=== PATIENT | male | born 1950 | race Caucasian/White ===

== ENCOUNTER 2017-08-13 10:55 | Outpatient (CLI) | payer MEDICARE, SELFPAY | END 2017-08-13 15:51 | PROVIDERS: Family Provider Emergency Medicine; Visit Provider Emergency Medicine | DX: Z79.01 Long term (current) use of anticoagulants (principal); I51.7 Cardiomegaly; Z51.81 Encounter for therapeutic drug level monitoring | CPT/HCPCS: 85610; 99211; G0463 ==

== ENCOUNTER 2017-08-14 12:07 | Inpatient (IN) | payer MEDICARE, SELFPAY | END 2017-08-22 15:30 | disposition home or self-care (01) | DRG 190 | PROVIDERS: Admitting Provider Emergency Medicine; Emergency Provider Emergency Medicine; Visit Provider Internal Medicine Adolescent Medicine | DX: J44.1 Chronic obstructive pulmonary disease with (acute) exacerbation (principal); I26.99 Other pulmonary embolism without acute cor pulmonale; E87.6 Hypokalemia; I10 Essential (primary) hypertension; Z72.0 Tobacco use; I50.9 Heart failure, unspecified; Z79.01 Long term (current) use of anticoagulants | CPT/HCPCS: 36415; 70450; 71010; 71020; 72125; 73562; 78582; 80048; 80053; 82550; 82553; 82803; 83605; 83880; 84484; 85025; 85378; 85610; 87040; 87070; 87077; 87186; 87205; 93005; 93041; 93970; 94640; 94660; 94760; 96365; 96375; 97163; 97530; 99211; 99285; A9540; A9567; G0378; G0463; J0456; J1956; J2270 ==

== ENCOUNTER 2017-08-26 14:38 | Outpatient (CLI) | payer MEDICARE, BC, SELFPAY ==
[2017-08-26 15:35] LABS: PHA INR Fingerstick 3.8 (0.9-1.1)
== END 2017-08-26 15:38 | disposition home or self-care (01) ==
LOC: ACC 14:43
PROVIDERS: PCP Emergency Medicine; Visit Provider Emergency Medicine
DX: Z51.81 Encounter for therapeutic drug level monitoring (principal); I51.7 Cardiomegaly; Z79.01 Long term (current) use of anticoagulants
CPT/HCPCS: 85610

== ENCOUNTER 2017-09-11 13:33 | Outpatient (CLI) | payer MEDICARE, SELFPAY ==
[2017-09-11 16:52] LABS: PHA INR Fingerstick 3.9 (0.9-1.1)
== END 2017-09-11 16:55 | disposition home or self-care (01) ==
PROVIDERS: Family Provider Emergency Medicine; PCP Emergency Medicine; Visit Provider Emergency Medicine
DX: Z79.01 Long term (current) use of anticoagulants (principal)
CPT/HCPCS: 85610; 99211; G0463

== ENCOUNTER 2017-09-25 12:35 | Outpatient (CLI) | payer MEDICARE, SELFPAY | END 2017-09-25 15:07 | disposition home or self-care (01) | LOC: ACC 12:36 | PROVIDERS: Family Provider Emergency Medicine; PCP Emergency Medicine; Visit Provider Emergency Medicine | DX: Z79.01 Long term (current) use of anticoagulants (principal); I51.7 Cardiomegaly; Z51.81 Encounter for therapeutic drug level monitoring | CPT/HCPCS: 85610; 99211; G0463 ==

== ENCOUNTER 2017-10-08 12:58 | Outpatient (CLI) | payer MEDICARE, SELFPAY | END 2017-10-08 15:26 | disposition home or self-care (01) | LOC: ACC 12:59 | PROVIDERS: PCP Emergency Medicine; Visit Provider Emergency Medicine | DX: Z79.01 Long term (current) use of anticoagulants (principal); Z51.81 Encounter for therapeutic drug level monitoring; I51.7 Cardiomegaly | CPT/HCPCS: 85610; 99211; G0463 ==

== ENCOUNTER → 2017-10-20 12:31 | Outpatient (CLI) | payer MEDICARE, SELFPAY ==
[2017-10-20 12:38] LABS: Microscopic, Urine URINE MICROSCOPIC (MICROSCOPIC)
[2017-10-20 13:07] LABS: Basophils % 0.4 % (0.1-2.0); Eosinophils # 0.3 K/mm3 (0.0-0.4); Eosinophils % 4.9 % (0.1-12.0); Hematocrit 30.3 % (42.0-52.0); Hemoglobin 8.8 g/dL (14.1-18.0); Lymphocytes # 1.5 K/mm3 (0.7-4.5); Lymphocytes % 22.9 K/mm3 (10-50); Mean Corpuscular HGB Conc 28.9 g/dL (31.8-35.4); Mean Corpuscular Hemoglobin 29.2 pg (27.0-31.2); Mean Corpuscular Volume 101.3 fl (80-94); Mean Platelet Volume 7.8 fl (7.4-10.4); Monocytes # 0.4 K/mm3 (0.1-1.0); Monocytes % 6.8 % (1.7-9.3); Neutrophils # 4.2 K/mm3 (1.8-7.8); Platelet Count 382 K/mm3 (142-424); Red Cell Distribution Width 15.8 % (11.5-17.5); White Blood Count 6.4 K/mm3 (4.8-10.8)
[2017-10-20 14:59] LABS: Appearance,Urine CLEAR (Clear); Bilirubin,Urine Negative (Negative); Blood, Urine Negative (Negative); Color,Urine YELLOW (Yellow); Glucose,Urine (UA) Negative (Negative); Ketones,Urine Negative (Negative); Leukocyte Esterase,Urine Negative (Negative); Nitrate,Urine Negative (Negative); Protein,Urine Negative (Negative); Urobilinogen,Urine 0.2 EU/dl (0.2)
[2017-10-20 15:24] LABS: Bacteria,Urine Trace /lpf; Squamous Epithelial Cell,Urine Occasional #/hpf (0-5)
[2017-10-20 15:37] LABS: Albumin Level 2.7 gm/dL (3.4-5.0); Blood Urea Nitrogen 61 mg/dL (7-18); Calcium 8.3 mg/dL (8.5-10.1); Carbon Dioxide 28 mmol/L (21.0-32.0); Creatinine,Serum 2.14 mg/dL (0.70-1.30); Estimated Glomerular Filt Rate 31 ml/min (>60); GFR (African American) 38 ML/MIN (>60); Glucose 100 mg/dL (74-106); Phosphorous 4.2 mg/dL (2.4-4.9)
[2017-10-20 16:31] LABS: INR 2.02 (0.9-1.1)
[2017-10-20 18:09] LABS: Anion Gap 13.1 mEq/L (5-15); Chloride 103 mmol/L (98-107); Potassium 5.1 mmoL/L (3.5-5.1); Sodium 139 mmol/L (136-145)
== END ==
PROVIDERS: Internal Medicine Nephrology; Family Provider Emergency Medicine; PCP Emergency Medicine; Visit Provider Emergency Medicine
DX: N18.3 Chronic kidney disease, stage 3 (moderate) (principal); Z79.01 Long term (current) use of anticoagulants
CPT/HCPCS: 80069; 81001; 85025; 85610

== ENCOUNTER → 2017-10-23 12:50 | Outpatient (POV) | payer MEDICARE, SELFPAY | PROVIDERS: Family Provider Emergency Medicine; PCP Emergency Medicine; Visit Provider Internal Medicine Nephrology | DX: Z00.00 Encounter for general adult medical examination without abnormal findings (principal) ==

== ENCOUNTER 2017-11-26 13:04 | Outpatient (CLI) | payer MEDICARE, SELFPAY ==
[2017-11-26 15:48] LABS: PHA INR Fingerstick 2.7 (0.9-1.1)
== END 2017-11-27 14:59 | disposition home or self-care (01) ==
PROVIDERS: PCP Emergency Medicine; Visit Provider Emergency Medicine
DX: Z79.01 Long term (current) use of anticoagulants (principal); Z51.81 Encounter for therapeutic drug level monitoring; I51.7 Cardiomegaly
CPT/HCPCS: 85610; 99211; G0463

== ENCOUNTER → 2018-02-23 10:44 | Outpatient (CLI) | payer MEDICARE, SELFPAY ==
[2018-02-23 10:54] LABS: Microscopic, Urine URINE MICROSCOPIC (MICROSCOPIC)
[2018-02-23 12:00] LABS: Basophils % 0.6 % (0.1-2.0); Eosinophils # 0.2 K/mm3 (0.0-0.4); Eosinophils % 3.5 % (0.1-12.0); Hematocrit 34.7 % (42.0-52.0); Hemoglobin 10.5 g/dL (14.1-18.0); Lymphocytes # 2.4 K/mm3 (0.7-4.5); Lymphocytes % 43.7 K/mm3 (10-50); Mean Corpuscular HGB Conc 30.2 g/dL (31.8-35.4); Mean Corpuscular Hemoglobin 27.6 pg (27.0-31.2); Mean Corpuscular Volume 91.5 fl (80-94); Mean Platelet Volume 7.9 fl (7.4-10.4); Monocytes # 0.4 K/mm3 (0.1-1.0); Monocytes % 7.9 % (1.7-9.3); Neutrophils # 2.5 K/mm3 (1.8-7.8); Neutrophils % 44.3 % (37.0-80.0); Platelet Count 299 K/mm3 (142-424); Red Blood Count 3.79 M/mm3 (4.60-6.20); Red Cell Distribution Width 17.4 % (11.5-17.5); White Blood Count 5.5 K/mm3 (4.8-10.8)
[2018-02-23 12:28] LABS: Albumin Level 3.6 gm/dL (3.4-5.0); Anion Gap 12.3 mEq/L (5-15); Blood Urea Nitrogen 48 mg/dL (7-18); Calcium 8.9 mg/dL (8.5-10.1); Carbon Dioxide 25 mmol/L (21.0-32.0); Chloride 103 mmol/L (98-107); Creatinine,Serum 1.24 mg/dL (0.70-1.30); Estimated Glomerular Filt Rate 58 ml/min (>60); Ferritin 18 ng/mL (8-388); GFR (African American) 71 ML/MIN (>60); Glucose 94 mg/dL (74-106); Phosphorous 3.6 mg/dL (2.4-4.9); Potassium 4.3 mmoL/L (3.5-5.1); Sodium 136 mmol/L (136-145); Uric Acid 6.3 mg/dL (2.6-7.2)
[2018-02-23 14:05] LABS: Appearance,Urine CLEAR (Clear); Bilirubin,Urine Negative (Negative); Blood, Urine Negative (Negative); Color,Urine YELLOW (Yellow); Glucose,Urine (UA) Negative (Negative); Ketones,Urine Negative (Negative); Leukocyte Esterase,Urine Negative (Negative); Nitrate,Urine Negative (Negative); Protein,Urine Negative (Negative); Specific Gravity, Urine <= 1.005 (1.005-1.030); Urobilinogen,Urine 0.2 EU/dl (0.2)
[2018-02-23 14:12] LABS: Creatinine,Urine Random 33 mg/dL (20-320)
[2018-02-23 14:27] LABS: Total Protein,Urine Random < 6.0 mg/dL (0.0-11.9)
[2018-02-23 14:50] LABS: Bacteria,Urine Trace /lpf; Squamous Epithelial Cell,Urine Occasional #/hpf (0-5)
[2018-02-24 08:38] LABS: Iron 24 ug/dL (38-169); Iron Saturation 6 % (15-55); UIBC 392 ug/dL (111-343)
[2018-02-24 09:02] LABS: Vitamin D 25 Hydroxy 35.2 ng/mL (30.0-100.0)
[2018-02-25 12:24] LABS: Calcium, Ionized 5.4 mg/dL (4.5-5.6); Parathyroid Hormone Intact 95 pg/mL (15-65)
[2018-02-25 12:26] LABS: Microalbumin, Urine 17.4 ug/mL (Not Estab.)
== END ==
PROVIDERS: Visit Provider Internal Medicine Nephrology
DX: N18.3 Chronic kidney disease, stage 3 (moderate) (principal); D64.9 Anemia, unspecified; Z79.899 Other long term (current) drug therapy
CPT/HCPCS: 36415; 80069; 81001; 82043; 82330; 82570; 82652; 82728; 83540; 83550; 83970; 84155; 84550; 85025

== ENCOUNTER → 2018-02-26 14:36 | Outpatient (POV) | payer MEDICARE, SELFPAY | PROVIDERS: Family Provider Emergency Medicine; PCP Emergency Medicine; Visit Provider Internal Medicine Nephrology | DX: Z00.00 Encounter for general adult medical examination without abnormal findings (principal) ==

== ENCOUNTER → 2018-11-23 11:16 | Outpatient (CLI) | payer MEDICARE, SELFPAY ==
[2018-11-23 11:22] LABS: Microscopic, Urine URINE MICROSCOPIC (MICROSCOPIC)
[2018-11-23 12:18] LABS: Basophils % 0.4 % (0.1-2.0); Eosinophils # 0.1 K/mm3 (0.0-0.4); Eosinophils % 1.5 % (0.1-12.0); Hemoglobin 9.9 g/dL (14.1-18.0); Lymphocytes # 1.7 K/mm3 (0.7-4.5); Mean Corpuscular Hemoglobin 26.9 pg (27.0-31.2); Mean Corpuscular Volume 92.8 fl (80-94); Mean Platelet Volume 6.9 fl (7.4-10.4); Monocytes # 0.2 K/mm3 (0.1-1.0); Monocytes % 5.9 % (1.7-9.3); Neutrophils % 49.2 % (37.0-80.0); Platelet Count 399 K/mm3 (142-424); Red Blood Count 3.67 M/mm3 (4.60-6.20); Red Cell Distribution Width 17.1 % (11.5-17.5)
[2018-11-23 12:24] LABS: Anion Gap 13.3 mEq/L (5-15); Blood Urea Nitrogen 27 mg/dL (7-18); Calcium 9.3 mg/dL (8.5-10.1); Carbon Dioxide 29 mmol/L (21.0-32.0); Chloride 103 mmol/L (98-107); Creatinine,Serum 1.41 mg/dL (0.70-1.30); Estimated Glomerular Filt Rate 50 ml/min (>60); GFR (African American) 61 ML/MIN (>60); Glucose 102 mg/dL (74-106); Potassium 4.3 mmoL/L (3.5-5.1); Sodium 141 mmol/L (136-145)
[2018-11-23 12:26] LABS: Appearance,Urine CLEAR (Clear); Bilirubin,Urine Negative (Negative); Blood, Urine Negative (Negative); Color,Urine YELLOW (Yellow); Glucose,Urine (UA) Negative (Negative); Ketones,Urine Negative (Negative); Leukocyte Esterase,Urine Negative (Negative); Nitrate,Urine Negative (Negative); Protein,Urine Negative (Negative); Specific Gravity, Urine <= 1.005 (1.005-1.030); Urobilinogen,Urine 0.2 EU/dl (0.2)
[2018-11-23 12:35] LABS: Bacteria,Urine Trace /lpf; Squamous Epithelial Cell,Urine Occasional #/hpf (0-5)
[2018-11-23 12:46] LABS: Creatinine,Urine Random 22 mg/dL (20-320); Total Protein,Urine Random 8.9 mg/dL (0.0-11.9)
[2018-11-24 07:02] LABS: Vitamin D 25 Hydroxy 35.6 ng/mL (30.0-100.0)
[2018-11-24 16:29] LABS: Calcium, Ionized 5.6 mg/dL (4.5-5.6); Parathyroid Hormone Intact 78 pg/mL (15-65)
== END ==
PROVIDERS: Visit Provider Internal Medicine Nephrology
DX: N18.3 Chronic kidney disease, stage 3 (moderate) (principal)
CPT/HCPCS: 36415; 80069; 81001; 82330; 82570; 82652; 83970; 84155; 85025

== ENCOUNTER → 2018-11-26 12:29 | Outpatient (POV) | payer MEDICARE, SELFPAY | PROVIDERS: Visit Provider Internal Medicine Nephrology | DX: Z00.00 Encounter for general adult medical examination without abnormal findings (principal) ==

== ENCOUNTER → 2019-08-23 12:35 | Outpatient (CLI) | payer MEDICARE, SELFPAY ==
[2019-08-23 12:40] LABS: Microscopic, Urine URINE MICROSCOPIC (MICROSCOPIC)
[2019-08-23 13:09] LABS: Basophils % 0.5 % (0.1-2.0); Eosinophils # 0.2 K/mm3 (0.0-0.4); Eosinophils % 3.3 % (0.1-12.0); Hematocrit 33.2 % (42.0-52.0); Hemoglobin 9.5 g/dL (14.1-18.0); Lymphocytes # 1.8 K/mm3 (0.7-4.5); Lymphocytes % 32.8 % (10-50); Mean Corpuscular HGB Conc 28.6 g/dL (31.8-35.4); Mean Corpuscular Hemoglobin 27.3 pg (27.0-31.2); Mean Corpuscular Volume 95.4 fl (80-94); Mean Platelet Volume 7.6 fl (7.4-10.4); Monocytes # 0.3 K/mm3 (0.1-1.0); Neutrophils # 3.2 K/mm3 (1.8-7.8); Neutrophils % 58.3 % (37.0-80.0); Platelet Count 362 K/mm3 (142-424); Red Blood Count 3.48 M/mm3 (4.60-6.20); Red Cell Distribution Width 18.3 % (11.5-17.5); White Blood Count 5.5 K/mm3 (4.8-10.8)
[2019-08-23 13:20] LABS: Appearance,Urine CLEAR (Clear); Bilirubin,Urine Negative (Negative); Blood, Urine Negative (Negative); Color,Urine YELLOW (Yellow); Glucose,Urine (UA) Negative (Negative); Ketones,Urine Negative (Negative); Leukocyte Esterase,Urine Negative (Negative); Nitrate,Urine Negative (Negative); PH,Urine 5.5 (5.0-8.5); Protein,Urine Negative (Negative); Urobilinogen,Urine 0.2 EU/dl (0.2)
[2019-08-23 13:22] LABS: Creatinine,Urine Random 14 mg/dL (20-320); Total Protein,Urine Random 6.7 mg/dL (0.0-11.9)
[2019-08-23 14:14] LABS: Squamous Epithelial Cell,Urine Occasional #/hpf (0-5)
[2019-08-23 14:31] LABS: Albumin Level 3.1 gm/dL (3.4-5.0); Anion Gap 12.8 mEq/L (5-15); Blood Urea Nitrogen 49 mg/dL (7-18); Calcium 8.8 mg/dL (8.5-10.1); Carbon Dioxide 27 mmol/L (21.0-32.0); Chloride 106 mmol/L (98-107); Creatinine,Serum 1.67 mg/dL (0.70-1.30); Estimated Glomerular Filt Rate 41 ml/min (>60); GFR (African American) 50 ML/MIN (>60); Glucose 87 mg/dL (74-106); Phosphorous 3.8 mg/dL (2.4-4.9); Potassium 5.8 mmoL/L (3.5-5.1); Sodium 140 mmol/L (136-145)
== END ==
PROVIDERS: Visit Provider Internal Medicine Nephrology
DX: N18.3 Chronic kidney disease, stage 3 (moderate) (principal)
CPT/HCPCS: 36415; 80069; 81001; 82570; 84155; 85025

== ENCOUNTER → 2019-08-26 13:05 | Outpatient (POV) | payer MEDICARE, SELFPAY | PROVIDERS: Visit Provider Internal Medicine Nephrology | DX: Z00.00 Encounter for general adult medical examination without abnormal findings (principal) ==

== ENCOUNTER → 2019-09-03 12:01 | Outpatient (CLI) | payer MEDICARE, SELFPAY ==
[2019-09-03 14:21] LABS: Anion Gap 13.9 mEq/L (5-15); Blood Urea Nitrogen 40 mg/dL (7-18); Calcium 8.6 mg/dL (8.5-10.1); Carbon Dioxide 28 mmol/L (21.0-32.0); Chloride 104 mmol/L (98-107); Creatinine,Serum 1.28 mg/dL (0.70-1.30); Estimated Glomerular Filt Rate 56 ml/min (>60); GFR (African American) 68 ML/MIN (>60); Glucose 84 mg/dL (74-106); Potassium 4.9 mmoL/L (3.5-5.1); Sodium 141 mmol/L (136-145)
== END ==
PROVIDERS: Visit Provider Internal Medicine Nephrology
DX: E87.5 Hyperkalemia (principal)
CPT/HCPCS: 36415; 80048

== ENCOUNTER → 2020-02-28 12:56 | Outpatient (CLI) | payer MEDICARE, SELFPAY ==
[2020-02-28 13:02] LABS: Microscopic, Urine URINE MICROSCOPIC (MICROSCOPIC)
[2020-02-28 14:09] LABS: Appearance,Urine CLEAR (Clear); Bilirubin,Urine Negative (Negative); Blood, Urine Negative (Negative); Color,Urine YELLOW (Yellow); Glucose,Urine (UA) Negative (Negative); Ketones,Urine Negative (Negative); Leukocyte Esterase,Urine Negative (Negative); Nitrate,Urine Negative (Negative); Protein,Urine Negative (Negative); Urobilinogen,Urine 0.2 EU/dl (0.2)
[2020-02-28 14:29] LABS: Creatinine,Urine Random 21 mg/dL (Not Estab.)
[2020-02-28 14:31] LABS: Chloride 105 mmol/L (98-107); Sodium 140 mmol/L (136-145)
[2020-02-28 14:32] LABS: Albumin Level 3.7 g/dl (3.5-5.0)
[2020-02-28 14:34] LABS: Blood Urea Nitrogen 37 mg/dl (9-20); Estimated Glomerular Filt Rate 55 ml/min (>60); GFR (African American) 66 ML/MIN (>60)
[2020-02-28 14:35] LABS: Calcium 9.2 mg/dl (8.4-10.2); Carbon Dioxide 27 mmol/L (22.0-30.0); Glucose 89 mg/dl (74-100); Phosphorous 4.2 mg/dl (2.5-4.5)
[2020-02-28 14:48] LABS: Intact Parathyroid Hormone 159.4 pg/mL (7.5-53.5)
[2020-02-28 14:50] LABS: 25-OH Vitamin D, Total 57.2 ng/mL (30-100)
[2020-02-28 14:54] LABS: Total Iron Binding Capacity 384 ug/dL (261-462)
[2020-02-28 14:58] LABS: Basophils % 0.7 % (0.1-2.0); Eosinophils # 0.2 K/mm3 (0.0-0.4); Eosinophils % 5.4 % (0.1-12.0); Hematocrit 31.5 % (42.0-52.0); Hemoglobin 9.6 g/dL (14.1-18.0); Lymphocytes # 1.8 K/mm3 (0.7-4.5); Lymphocytes % 42.3 % (10-50); Mean Corpuscular HGB Conc 30.5 g/dL (31.8-35.4); Mean Corpuscular Hemoglobin 30.4 pg (27.0-31.2); Mean Corpuscular Volume 99.7 fl (80-94); Mean Platelet Volume 7.5 fl (7.4-10.4); Monocytes # 0.3 K/mm3 (0.1-1.0); Neutrophils # 1.9 K/mm3 (1.8-7.8); Neutrophils % 43.7 % (37.0-80.0); Platelet Count 307 K/mm3 (142-424); Red Blood Count 3.16 M/mm3 (4.60-6.20); Red Cell Distribution Width 14.6 % (11.5-17.5); White Blood Count 4.3 K/mm3 (4.8-10.8)
[2020-02-28 15:21] LABS: Mucus,Urine Trace /lpf; Squamous Epithelial Cell,Urine Occasional #/hpf (0-5); WBC,Urine Occasional #/hpf (0-3)
[2020-02-28 15:27] LABS: Ferritin 8.33 ng/ml (17.9-464)
[2020-03-01 10:16] LABS: Calcium, Ionized 5.4 mg/dL (4.5-5.6)
== END ==
PROVIDERS: Visit Provider Internal Medicine Nephrology
DX: N18.3 Chronic kidney disease, stage 3 (moderate) (principal); D50.9 Iron deficiency anemia, unspecified
CPT/HCPCS: 36415; 80069; 81001; 82306; 82330; 82570; 82728; 83550; 83970; 84155; 85025

== ENCOUNTER → 2020-03-06 12:36 | Outpatient (POV) | payer MEDICARE, SELFPAY | PROVIDERS: Visit Provider Internal Medicine Nephrology | DX: Z00.00 Encounter for general adult medical examination without abnormal findings (principal) ==

== ENCOUNTER → 2021-10-04 11:34 | Outpatient (CLI) | payer MEDICARE, SELFPAY ==
[2021-10-04 12:00] LABS: Microscopic, Urine URINE MICROSCOPIC (MICROSCOPIC)
[2021-10-04 13:27] LABS: Basophils % 0.5 % (0.1-2.0); Eosinophils # 0.1 K/mm3 (0.0-0.4); Eosinophils % 1.4 % (0.1-12.0); Hematocrit 30.4 % (42.0-52.0); Hemoglobin 9.4 g/dL (14.1-18.0); Lymphocytes # 1.7 K/mm3 (0.7-4.5); Lymphocytes % 30.3 % (10-50); Mean Corpuscular HGB Conc 30.9 g/dL (31.8-35.4); Mean Corpuscular Hemoglobin 31.6 pg (27.0-31.2); Mean Corpuscular Volume 102.4 fl (80-94); Mean Platelet Volume 8.1 fl (7.4-10.4); Monocytes # 0.5 K/mm3 (0.1-1.0); Monocytes % 8.1 % (1.7-9.3); Neutrophils # 3.4 K/mm3 (1.8-7.8); Neutrophils % 59.7 % (37.0-80.0); Platelet Count 502 K/mm3 (142-424); Red Blood Count 2.97 M/mm3 (4.60-6.20); Red Cell Distribution Width 15.3 % (11.5-17.5); White Blood Count 5.6 K/mm3 (4.8-10.8)
[2021-10-04 14:19] LABS: Appearance,Urine CLEAR (Clear); Bilirubin,Urine Negative (Negative); Blood, Urine Negative (Negative); Color,Urine YELLOW (Yellow); Glucose,Urine (UA) Negative (Negative); Ketones,Urine Negative (Negative); Leukocyte Esterase,Urine Negative (Negative); Nitrate,Urine Negative (Negative); PH,Urine 5.5 (5.0-8.5); Protein,Urine Negative (Negative); Urobilinogen,Urine 0.2 EU/dl (0.2)
[2021-10-04 14:50] LABS: Albumin Level 3.1 g/dl (3.5-5.0); Anion Gap 10.4 mEq/L (5-15); Blood Urea Nitrogen 33 mg/dl (9-20); Calcium 8.8 mg/dl (8.4-10.2); Carbon Dioxide 26 mmol/L (22.0-30.0); Chloride 109 mmol/L (98-107); Creatinine,Urine Random 33 mg/dL (Not Estab.); Estimated Glomerular Filt Rate 60 ml/min (>60); GFR (African American) 72 ML/MIN (>60); Glucose 81 mg/dl (74-100); Potassium 5.4 mmoL/L (3.5-5.1); Sodium 140 mmol/L (136-145)
[2021-10-04 15:01] LABS: 25-OH Vitamin D, Total 55.2 ng/mL (30-100); Intact Parathyroid Hormone 222.3 pg/mL (7.5-53.5)
== END ==
PROVIDERS: PCP Nurse Practitioner Family; Visit Provider Internal Medicine Nephrology
DX: N18.30 Chronic kidney disease, stage 3 unspecified (principal); E55.9 Vitamin D deficiency, unspecified
CPT/HCPCS: 36415; 80069; 81001; 82306; 82570; 83970; 84155; 85025

== ENCOUNTER → 2021-10-08 13:19 | Outpatient (POV) | payer MEDICARE, SELFPAY | PROVIDERS: Visit Provider Internal Medicine Nephrology | DX: Z00.00 Encounter for general adult medical examination without abnormal findings (principal) ==